=== PATIENT | female | born 1995 | race Caucasian/White ===

== ENCOUNTER 2018-03-30 10:41 | Emergency (ER) | payer BC ==
[~2018-03-30] VITALS: Ht 162.6 cm; Wt 113.4 kg
[~2018-03-30 10:41] MED LIST: ATIVAN1 M1 PO; AUGMENTIN875TAB PO; CIPROFLOXACN500 MG PO; DICLOFENAC SODI75 MG PO; LORTAB 10-325 M1 TAB PO; METRONIDAZOL500 MG PO; OB COMPLET2 PO; ULTRAM50 M1 PO; VENTOLIN HFA IN
[2018-03-30] MEDS ORDERED: DICLOFENAC50 MG PO (11:15)
[2018-03-30] MEDS ORDERED: AUGMENTIN500TAB PO (11:25)
[2018-03-30 13:16] LABS: URINE BILIRUBIN - DIPSTICK NEGATIVE (NEGATIVE); URINE BLOOD DIPSTICK TRACE-INTACT (NEGATIVE); URINE COLOR YELLOW; URINE GLUCOSE - DIPSTICK NEGATIVE (NEGATIVE); URINE KETONE NEGATIVE (NEGATIVE); URINE LEUK ESTERASE NEGATIVE (NEGATIVE); URINE NITRITE - DIPSTICK NEGATIVE (Negative); URINE PH 5.5 (4.5-8.0); URINE PROTEIN - DIPSTICK NEGATIVE (NEG-TRACE); URINE SPECIFIC GRAVITY >=1.030; URINE UROBILINOGEN - DIPSTICK 0.2 E.U./dL (0.2)
[2018-03-30 13:21] LABS: URINE CLARITY CLEAR
[2018-03-30 13:29] LABS: HEMOGLOBIN 13.4 g/dl (12.0-16.0); IMMATURE GRANULOCYTES 0.5 % (0.0-5.0); MEAN CELL VOLUME 87.1 fL CALC (80.0-100.0); MEAN CORPUSCULAR HGB 28.9 pG CALC (26.0-32.0); MEAN CORPUSCULAR HGB CONC 33.2 g/L CALC (32.0-36.0); NEUT# 4.21 thou/uL (2.00-7.15); RED BLOOD COUNT 4.64 mill/uL (4.20-5.60); RED CELL DISTRI WIDTH 13.2 % (11.5-15.5)
[2018-03-30 13:34] LABS: HEMATOCRIT 40.4 % (37.0-47.0)
[2018-03-30 13:38] LABS: ALBUMIN 4.5 g/dL (3.2-5.0); ALKALINE PHOSPHATASE 80 u/l (38-126); ANION GAP 18 (6-22 (CALC)); BILIRUBIN, TOTAL 0.5 mg/dL (0.0-1.4); BUN 9 mg/dL (7-17); BUN/CREATININE RATIO 16 (12-20 (CALC)); CARBON DIOXIDE 21 mmol/l (22-30); CHLORIDE 106 mmol/l (95-108); CREATININE 0.6 mg/dL (0.5-1.0); GFR > 60 ML/MIN (>=60 (CALC)); GFR FOR AFR.AMER. > 60 ML/MIN (>=60 (CALC)); LIPASE 86 u/l (23-300); POTASSIUM 4.3 mmol/l (3.5-5.1); SGOT/AST 32 u/l (14-36); SGPT/ALT 51 u/l (9-52); SODIUM 141 mmol/l (137-146); TOTAL PROTEIN 8.1 g/dL (6.3-8.2)
[2018-03-30] MEDS ORDERED: CIPROFLOXACN500 MG PO (14:40)
[2018-03-30] MEDS ORDERED: ONDANSETRON4 MG PO (14:40)
[2018-03-30] MEDS ORDERED: METRONIDAZOL500 MG PO (14:40)
[2018-03-30 15:00] VITALS: BP 125/61
== END 2018-03-30 15:11 | disposition home or self-care (01) | DRG 392 ==
LOC: ED 10:41
PROVIDERS: Family Medicine
DX: R10.32 Left lower quadrant pain (principal); N83.202 Unspecified ovarian cyst, left side
CPT/HCPCS: Q9967

== ENCOUNTER → 2018-08-31 | Outpatient (REF) | payer BC ==
[~2018-08-31] MED LIST changes: +AUGMENTIN500TAB PO; +BUPROPION150 M4 PO; +DICLOFEN POT50 MG PO; +DICLOFENAC50 MG PO; +NORCO1 TA2 PO; +ONDANSETRON4 MG PO; +SPIRONOLACTONE50 MG PO; +TAM75CAP PO
[2018-08-31 12:21] VITALS: BP 148/95
[2018-08-31 12:30] LABS: BARBITURATES NEGATIVE (NEGATIVE); COCAINE NEGATIVE (NEGATIVE); METHADONE NEGATIVE (NEGATIVE); OXCYCODONE NEGATIVE (NEGATIVE); TETRAHYDROCANNABIONOL NEGATIVE (NEGATIVE); TRICYLIC ANTIDEPRESSANTS NEGATIVE (NEGATIVE)
== END | disposition home or self-care (01) | DRG 950 ==
LOC: PAIN/MGT 12:00
PROVIDERS: ATTEND Anesthesiology Pain Medicine
DX: Z51.81 Encounter for therapeutic drug level monitoring (principal); Z79.891 Long term (current) use of opiate analgesic

== ENCOUNTER 2018-09-08 05:13 | Emergency (ER) | payer BC ==
[~2018-09-08] VITALS: Ht 162.6 cm; Wt 115.0 kg
[~2018-09-08 05:13] MED LIST changes: -TAM75CAP PO
[2018-09-08 05:52] LABS: URINE BILIRUBIN - DIPSTICK NEGATIVE (NEGATIVE); URINE BLOOD DIPSTICK SMALL (NEGATIVE); URINE COLOR YELLOW; URINE GLUCOSE - DIPSTICK NEGATIVE (NEGATIVE); URINE KETONE NEGATIVE (NEGATIVE); URINE LEUK ESTERASE NEGATIVE (NEGATIVE); URINE NITRITE - DIPSTICK NEGATIVE (Negative); URINE PROTEIN - DIPSTICK NEGATIVE (NEG-TRACE); URINE SPECIFIC GRAVITY 1.015; URINE UROBILINOGEN - DIPSTICK 0.2 E.U./dL (0.2)
[2018-09-08 05:58] LABS: HEMATOCRIT 37.6 % (37.0-47.0); HEMOGLOBIN 12.9 g/dl (12.0-16.0); IMMATURE GRANULOCYTES 0.3 % (0.0-5.0); MEAN CELL VOLUME 86.2 fL CALC (80.0-100.0); MEAN CORPUSCULAR HGB 29.6 pG CALC (26.0-32.0); MEAN CORPUSCULAR HGB CONC 34.3 g/L CALC (32.0-36.0); NEUT# 6.35 thou/uL (2.00-7.15); RED BLOOD COUNT 4.36 mill/uL (4.20-5.60); RED CELL DISTRI WIDTH 12.7 % (11.5-15.5)
[2018-09-08 06:05] LABS: URINE BACTERIA MODERATE hpf; URINE SQUAMOUS EPITHELIAL CELL FEW EPI/hpf (0-FEW); URINE WBC 0-2 WBC/hpf (0-5)
[2018-09-08 06:23] LABS: ALBUMIN 4.5 g/dL (3.2-5.0); ALKALINE PHOSPHATASE 82 u/l (38-126); ANION GAP 15 (6-22 (CALC)); BILIRUBIN, TOTAL 0.6 mg/dL (0.0-1.4); BUN 10 mg/dL (7-17); BUN/CREATININE RATIO 14 (12-20 (CALC)); CARBON DIOXIDE 22 mmol/l (22-30); CHLORIDE 103 mmol/l (95-108); CREATININE 0.8 mg/dL (0.5-1.0); GFR > 60 ML/MIN (>=60 (CALC)); GFR FOR AFR.AMER. > 60 ML/MIN (>=60 (CALC)); SGOT/AST 35 u/l (14-36); SODIUM 136 mmol/l (137-146); TOTAL PROTEIN 7.2 g/dL (6.3-8.2)
[2018-09-08] MEDS ORDERED: CIPROFLOXACN500 MG PO (06:30)
[2018-09-08] MEDS ORDERED: TAM75CAP PO (06:30)
[2018-09-08 07:00] VITALS: BP 118/67
== END 2018-09-08 06:58 | disposition home or self-care (01) | DRG 153 ==
LOC: ED 05:13
PROVIDERS: Emergency Medicine
DX: J11.1 Influenza due to unidentified influenza virus with other respiratory manifestations (principal); N39.0 Urinary tract infection, site not specified; R50.9 Fever, unspecified; M79.10 Myalgia, unspecified site

== ENCOUNTER 2019-03-30 06:38 | Day surgery (SDC) | payer BC ==
[~2019-03-30] VITALS: Ht 162.6 cm; Wt 111.1 kg
[~2019-03-30 06:38] MED LIST changes: +TAM75CAP PO
[2019-03-30] MEDS ORDERED: BUPROPION150 M4 PO (07:17)
[2019-03-30] MEDS ORDERED: DIPHEN/ATROP2.5 MG PO (07:18)
[2019-03-30] MEDS ORDERED: OXYBUTYNIN5 M1 PO (07:18)
[2019-03-30] MEDS ORDERED: NORCO1 TA2 PO ×2 (08:25→08:26)
[2019-03-30 08:44] VITALS: BP 131/82
== END 2019-03-30 09:20 | disposition home or self-care (01) | DRG 552 ==
LOC: ORM 06:38
PROVIDERS: ATTEND Anesthesiology Pain Medicine
PROC: 3E0T3BZ Introduction of Anesthetic Agent into Peripheral Nerves and Plexi, Percutaneous Approach (ICD-10-PCS; principal; 2019-03-30)
PROC: 3E0T33Z Introduction of Anti-inflammatory into Peripheral Nerves and Plexi, Percutaneous Approach (ICD-10-PCS; 2019-03-30)
PROC: 3E0T3BZ Introduction of Anesthetic Agent into Peripheral Nerves and Plexi, Percutaneous Approach (ICD-10-PCS; 2019-03-30)
PROC: 3E0T33Z Introduction of Anti-inflammatory into Peripheral Nerves and Plexi, Percutaneous Approach (ICD-10-PCS; 2019-03-30)
PROC: 3E0T3BZ Introduction of Anesthetic Agent into Peripheral Nerves and Plexi, Percutaneous Approach (ICD-10-PCS; 2019-03-30)
PROC: 3E0T33Z Introduction of Anti-inflammatory into Peripheral Nerves and Plexi, Percutaneous Approach (ICD-10-PCS; 2019-03-30)
DX: M54.5 Low back pain (principal); M12.9 Arthropathy, unspecified

== ENCOUNTER 2019-04-21 08:12 | Emergency (ER) | payer BC ==
[~2019-04-21] VITALS: Ht 162.6 cm; Wt 100.0 kg
[~2019-04-21 08:12] MED LIST changes: +DIPHEN/ATROP2.5 MG PO; +OXYBUTYNIN5 M1 PO
[2019-04-21] MEDS ORDERED: AMOXICILLIN/CL875 MG PO (08:38)
[2019-04-21 09:16] VITALS: BP 139/79
== END 2019-04-21 09:20 | disposition home or self-care (01) | DRG 153 ==
LOC: ED 08:12
DX: J32.0 Chronic maxillary sinusitis (principal); F17.210 Nicotine dependence, cigarettes, uncomplicated

== ENCOUNTER 2019-07-20 | Day surgery (SDC) | payer BC ==
[~2019-07-20] MED LIST changes: +AMOXICILLIN/CL875 MG PO
[2019-07-20] MEDS ORDERED: LYRICA25 MG PO (09:07)
[2019-07-20 09:11] LABS: HCG SERUM/URINE (NEG/POS) NEGATIVE (NEGATIVE)
[2019-07-20] MEDS ORDERED: NORCO1 TA2 PO (10:36)
[2019-08-23] MEDS ORDERED: NORCO1 TA2 PO (16:38)
[2019-09-20] MEDS ORDERED: NORCO1 TA2 PO (15:58)
[2019-10-18] MEDS ORDERED: NORCO1 TA2 PO (07:55)
[2019-11-22] MEDS ORDERED: NORCO1 TA2 PO (14:22)
[2019-11-22] MEDS ORDERED: DICLOFENAC75 MG PO (14:23)
[2019-12-20] MEDS ORDERED: DICLOFENAC75 MG PO (15:13)
[2019-12-20] MEDS ORDERED: NORCO1 TA2 PO (15:14)
[2020-01-17] MEDS ORDERED: NORCO1 TA2 PO (14:55)
[2020-02-14] MEDS ORDERED: DICLOFENAC75 MG PO (14:25)
[2020-02-14] MEDS ORDERED: NORCO1 TA2 PO (14:25)
[2020-03-20] MEDS ORDERED: NORCO1 TA2 PO (09:22)
[2020-04-17] MEDS ORDERED: NORCO1 TA2 PO (14:18)
== END 2019-07-20 10:45 | disposition home or self-care (01) | DRG 552 ==
PROVIDERS: Anesthesiology Pain Medicine
DX: M54.5 Low back pain (principal); M12.9 Arthropathy, unspecified

== ENCOUNTER 2019-09-04 | Emergency (ER) | payer BC ==
[~2019-09-04] MED LIST changes: +LYRICA25 MG PO
[2019-09-04] MEDS ORDERED: AMOXICILLIN500 MG PO (21:04)
[2019-09-05] MEDS ORDERED: ZOFRAN4 MG/TAB PO (13:33)
[2019-09-20] MEDS ORDERED: NORCO1 TA2 PO (15:58)
[2019-10-18] MEDS ORDERED: NORCO1 TA2 PO (07:55)
[2019-11-22] MEDS ORDERED: NORCO1 TA2 PO (14:22)
[2019-11-22] MEDS ORDERED: DICLOFENAC75 MG PO (14:23)
[2019-12-20] MEDS ORDERED: DICLOFENAC75 MG PO (15:13)
[2019-12-20] MEDS ORDERED: NORCO1 TA2 PO (15:14)
[2020-01-17] MEDS ORDERED: NORCO1 TA2 PO (14:55)
[2020-02-14] MEDS ORDERED: NORCO1 TA2 PO (14:25)
[2020-02-14] MEDS ORDERED: DICLOFENAC75 MG PO (14:25)
[2020-03-20] MEDS ORDERED: NORCO1 TA2 PO (09:22)
[2020-04-17] MEDS ORDERED: NORCO1 TA2 PO (14:18)
== END 2019-09-04 21:10 | disposition home or self-care (01) | DRG 153 ==
DX: J02.0 Streptococcal pharyngitis (principal)

== ENCOUNTER 2019-09-05 | Emergency (ER) | payer BC ==
[~2019-09-05] MED LIST changes: +AMOXICILLIN500 MG PO
[2019-09-05] MEDS ORDERED: ZOFRAN4 MG/TAB PO (13:33)
[2019-09-20] MEDS ORDERED: NORCO1 TA2 PO (15:58)
[2019-10-18] MEDS ORDERED: NORCO1 TA2 PO (07:55)
[2019-11-22] MEDS ORDERED: NORCO1 TA2 PO (14:22)
[2019-11-22] MEDS ORDERED: DICLOFENAC75 MG PO (14:23)
[2019-12-20] MEDS ORDERED: DICLOFENAC75 MG PO (15:13)
[2019-12-20] MEDS ORDERED: NORCO1 TA2 PO (15:14)
[2020-01-17] MEDS ORDERED: NORCO1 TA2 PO (14:55)
[2020-02-14] MEDS ORDERED: DICLOFENAC75 MG PO (14:25)
[2020-02-14] MEDS ORDERED: NORCO1 TA2 PO (14:25)
[2020-03-20] MEDS ORDERED: NORCO1 TA2 PO (09:22)
[2020-04-17] MEDS ORDERED: NORCO1 TA2 PO (14:18)
== END 2019-09-05 13:55 | disposition home or self-care (01) | DRG 153 ==
DX: J02.0 Streptococcal pharyngitis (principal)
CPT/HCPCS: J0561

== ENCOUNTER 2020-05-02 06:07 | Day surgery (SDC) | payer BC ==
[~2020-05-02] VITALS: Ht 162.6 cm; Wt 111.1 kg
[~2020-05-02 06:07] MED LIST changes: +DICLOFENAC75 MG PO; +ZOFRAN4 MG/TAB PO
[2020-05-02 08:05] VITALS: BP 113/77
[2020-05-02] MEDS ORDERED: NORCO1 TA2 PO (08:08)
== END 2020-05-02 08:27 | disposition home or self-care (01) | DRG 552 ==
LOC: ORM 06:07
PROVIDERS: ATTEND Anesthesiology Pain Medicine
DX: M54.5 Low back pain (principal); M12.9 Arthropathy, unspecified; Z01.84 Encounter for antibody response examination

== ENCOUNTER 2020-12-12 17:05 | Emergency (ER) | payer MEDICAID ==
[~2020-12-12] VITALS: Ht 162.6 cm; Wt 114.0 kg
[~2020-12-12 17:05] MED LIST changes: +LORTAB 7.57.5 MG PO
[2020-12-12 17:40] LABS: URINE BILIRUBIN - DIPSTICK NEGATIVE (NEGATIVE); URINE BLOOD DIPSTICK SMALL (NEGATIVE); URINE COLOR YELLOW; URINE GLUCOSE - DIPSTICK NEGATIVE (NEGATIVE); URINE KETONE NEGATIVE (NEGATIVE); URINE LEUK ESTERASE NEGATIVE (NEGATIVE); URINE PH 5.5 (4.5-8.0); URINE PROTEIN - DIPSTICK NEGATIVE (NEG-TRACE); URINE SPECIFIC GRAVITY >=1.030; URINE UROBILINOGEN - DIPSTICK 0.2 E.U./dL (0.2)
[2020-12-12 17:44] LABS: URINE NITRITE - DIPSTICK NEGATIVE (Negative)
[2020-12-12 17:52] LABS: URINE BACTERIA FEW hpf; URINE SQUAMOUS EPITHELIAL CELL FEW EPI/hpf (0-FEW); URINE WBC 0-2 WBC/hpf (0-5)
[2020-12-12 18:16] LABS: HEMATOCRIT 38.7 % (37.0-47.0); HEMOGLOBIN 12.6 g/dl (12.0-16.0); IMMATURE GRANULOCYTES 0.3 % (0.0-5.0); MEAN CELL VOLUME 88.4 fL CALC (80.0-100.0); MEAN CORPUSCULAR HGB 28.8 pG CALC (26.0-32.0); MEAN CORPUSCULAR HGB CONC 32.6 g/dL CAL (32.0-36.0); NEUT# 5.2 thou/uL (2.00-7.15); RED BLOOD COUNT 4.38 mill/uL (4.20-5.60); RED CELL DISTRI WIDTH 12.6 % (11.5-15.5)
[2020-12-12 18:28] LABS: ALBUMIN 4.1 g/dL (3.2-5.0); ALKALINE PHOSPHATASE 59 u/l (38-126); ANION GAP 11 (6-22 (CALC)); BILIRUBIN, TOTAL 0.3 mg/dL (0.0-1.4); BUN 14 mg/dL (7-17); BUN/CREATININE RATIO 19 (12-20 (CALC)); CARBON DIOXIDE 25 mmol/l (22-30); CHLORIDE 104 mmol/l (95-108); CREATININE 0.7 mg/dL (0.5-1.0); GFR > 60 ML/MIN (>=60 (CALC)); GFR FOR AFR.AMER. > 60 ML/MIN (>=60 (CALC)); LIPASE 81 u/l (23-300); POTASSIUM 4.3 mmol/l (3.5-5.1); SGOT/AST 23 u/l (14-36); SODIUM 135 mmol/l (137-146); TOTAL PROTEIN 7.4 g/dL (6.3-8.2)
[2020-12-12 20:35] VITALS: BP 129/64
[2021-01-15] MEDS ORDERED: LORTAB 7.57.5 MG PO ×2 (12:34→12:35)
[2021-01-15] MEDS ORDERED: TRAZODONE100 MG PO (12:37)
[2021-02-05] MEDS ORDERED: LORTAB 7.57.5 MG PO (11:13)
== END 2020-12-12 20:35 | disposition home or self-care (01) ==
LOC: ED 17:05
PROVIDERS: Family Medicine
DX: R10.31 Right lower quadrant pain (principal); R10.33 Periumbilical pain; K59.00 Constipation, unspecified; R31.29 Other microscopic hematuria; M54.5 Low back pain; G89.29 Other chronic pain
CPT/HCPCS: Q9967

== ENCOUNTER 2021-03-31 12:23 | Emergency (ER) | payer MEDICAID ==
[~2021-03-31] VITALS: Ht 162.6 cm; Wt 108.0 kg
[~2021-03-31 12:23] MED LIST changes: +AMBIEN10 MG PO; +TRAZODONE100 MG PO
[2021-03-31 13:28] LABS: URINE BILIRUBIN - DIPSTICK NEGATIVE (NEGATIVE); URINE BLOOD DIPSTICK TRACE-INTACT (NEGATIVE); URINE COLOR YELLOW; URINE GLUCOSE - DIPSTICK NEGATIVE (NEGATIVE); URINE KETONE TRACE mg/dL (NEGATIVE); URINE LEUK ESTERASE NEGATIVE (NEGATIVE); URINE PROTEIN - DIPSTICK NEGATIVE (NEG-TRACE); URINE SPECIFIC GRAVITY >=1.030; URINE UROBILINOGEN - DIPSTICK 0.2 E.U./dL (0.2)
[2021-03-31 13:32] LABS: URINE NITRITE - DIPSTICK NEGATIVE (Negative)
[2021-03-31] MEDS ORDERED: KEFLEX500 MG PO (14:06)
[2021-03-31 14:26] VITALS: BP 142/77
== END 2021-03-31 14:31 | disposition home or self-care (01) ==
LOC: ED 12:23
DX: N30.90 Cystitis, unspecified without hematuria (principal)

== ENCOUNTER 2021-10-23 08:12 | Day surgery (SDC) | payer MEDICAID ==
[~2021-10-23] VITALS: Ht 162.6 cm; Wt 111.1 kg
[~2021-10-23 08:12] MED LIST changes: +KEFLEX500 MG PO
[2021-10-23] MEDS ORDERED: TRAZODONE XX (09:27)
[2021-10-23 11:39] VITALS: BP 135/77
== END 2021-10-23 11:32 | disposition home or self-care (01) ==
LOC: ORM 08:12
PROVIDERS: ATTEND Physical Medicine & Rehabilitation
DX: M47.812 Spondylosis without myelopathy or radiculopathy, cervical region (principal); G89.4 Chronic pain syndrome; Z79.891 Long term (current) use of opiate analgesic

== ENCOUNTER 2021-12-17 17:11 | Emergency (ER) | payer MEDICAID ==
[~2021-12-17] VITALS: Ht 162.6 cm; Wt 116.0 kg
[~2021-12-17 17:11] MED LIST changes: +TRAZODONE XX
[2021-12-17 17:21] VITALS: BP 135/93
[2021-12-17 17:31] VITALS: BP 131/89
[2021-12-17 18:15] LABS: HEMATOCRIT 38.4 % (37.0-47.0); HEMOGLOBIN 12.5 g/dl (12.0-16.0); IMMATURE GRANULOCYTES 0.2 % (0.0-5.0); MEAN CELL VOLUME 89.9 fL CALC (80.0-100.0); MEAN CORPUSCULAR HGB 29.3 pG CALC (26.0-32.0); MEAN CORPUSCULAR HGB CONC 32.6 g/dL CAL (32.0-36.0); NEUT# 8.45 thou/uL (2.00-7.15); RED BLOOD COUNT 4.27 mill/uL (4.20-5.60); RED CELL DISTRI WIDTH 12.5 % (11.5-15.5)
[2021-12-17 18:25] LABS: ALBUMIN 4.3 g/dL (3.2-5.0); ALKALINE PHOSPHATASE 81 u/l (38-126); ANION GAP 13 (6-22 (CALC)); BUN 9 mg/dL (7-17); BUN/CREATININE RATIO 16 (12-20 (CALC)); CARBON DIOXIDE 22 mmol/l (22-30); CHLORIDE 105 mmol/l (95-108); CREATININE 0.6 mg/dL (0.5-1.0); GFR FOR AFR.AMER. > 60 ML/MIN (>=60 (CALC)); GFR OTHER RACES > 60 ML/MIN (>=60 (CALC)); POTASSIUM 4.2 mmol/l (3.5-5.1); SGOT/AST 38 u/l (14-36); SODIUM 137 mmol/l (137-146)
[2021-12-17 18:27] LABS: BILIRUBIN, TOTAL 0.7 mg/dL (0.0-1.4)
[2021-12-17 20:06] VITALS: BP 131/89
[2021-12-17] MEDS ORDERED: AMOX/K CLAV875 M1 PO (20:07)
== END 2021-12-17 20:23 | disposition home or self-care (01) ==
LOC: ED 17:11
PROVIDERS: Family Medicine
DX: J03.90 Acute tonsillitis, unspecified (principal); Z20.828 Contact with and (suspected) exposure to other viral communicable diseases
CPT/HCPCS: Q9967

== ENCOUNTER 2022-01-01 09:03 | Day surgery (SDC) | payer MEDICAID ==
[~2022-01-01] VITALS: Ht 162.6 cm; Wt 109.3 kg
[~2022-01-01 09:03] MED LIST changes: +AMOX/K CLAV875 M1 PO
[2022-01-01] MEDS ORDERED: GABAPENTIN100 MG PO (09:25)
[2022-01-01 11:40] VITALS: BP 137/88
== END 2022-01-01 11:00 | disposition home or self-care (01) ==
LOC: ORM 09:03
PROVIDERS: ATTEND Physical Medicine & Rehabilitation
DX: M47.812 Spondylosis without myelopathy or radiculopathy, cervical region (principal); G89.4 Chronic pain syndrome; Z79.891 Long term (current) use of opiate analgesic

== ENCOUNTER 2022-01-29 06:39 | Day surgery (SDC) | payer MEDICAID ==
[~2022-01-29] VITALS: Ht 162.6 cm; Wt 111.1 kg
[~2022-01-29 06:39] MED LIST changes: +GABAPENTIN100 MG PO
[2022-01-29 11:05] VITALS: BP 121/81
== END 2022-01-29 10:45 | disposition home or self-care (01) ==
LOC: ORM 06:39
PROVIDERS: ATTEND Physical Medicine & Rehabilitation
DX: M47.812 Spondylosis without myelopathy or radiculopathy, cervical region (principal)
CPT/HCPCS: J1100

== ENCOUNTER 2022-12-03 06:56 | Day surgery (SDC) | payer MEDICAID ==
[~2022-12-03] VITALS: Ht 162.6 cm; Wt 120.2 kg
[2022-12-03 07:12] LABS: HCG SERUM/URINE (NEG/POS) NEGATIVE (NEGATIVE)
[2022-12-03] MEDS ORDERED: TOPAMAX25 MG PO (07:38)
[2022-12-03] MEDS ORDERED: ABILIFY10 MG PO (07:38)
[2022-12-03 10:10] VITALS: BP 131/90
== END 2022-12-03 08:50 | disposition home or self-care (01) ==
LOC: ORM 06:56
PROVIDERS: ATTEND Physical Medicine & Rehabilitation Pain Medicine
DX: G89.4 Chronic pain syndrome (principal); Z79.891 Long term (current) use of opiate analgesic; M47.812 Spondylosis without myelopathy or radiculopathy, cervical region; G89.21 Chronic pain due to trauma

== ENCOUNTER 2022-12-09 17:13 | Emergency (ER) | payer OTHER, MEDICAID ==
[~2022-12-09] VITALS: Ht 162.6 cm; Wt 122.0 kg
[2022-12-09] VITALS (12 sets, daily range): BP systolic 117–146; BP diastolic 60–93
[~2022-12-09 17:13] MED LIST changes: +ABILIFY10 MG PO; +TOPAMAX25 MG PO
[2022-12-09 18:15] LABS: BASO% 0.4 % (0-3); HEMATOCRIT 40.6 % (37.0-47.0); HEMOGLOBIN 13.3 g/dl (12.0-16.0); IMMATURE GRANULOCYTES 0.3 % (0.0-5.0); LYMPH% 23.4 % (15-41); MEAN CELL VOLUME 87.7 fL CALC (80.0-100.0); MEAN CORPUSCULAR HGB 28.7 pG CALC (26.0-32.0); MEAN CORPUSCULAR HGB CONC 32.8 g/dL CAL (32.0-36.0); MONO% 8.1 % (2-13); NEUT# 7.54 thou/uL (2.00-7.15); NEUT% 66.8 % (42-76); RED BLOOD COUNT 4.63 mill/uL (4.20-5.60); RED CELL DISTRI WIDTH 13.1 % (11.5-15.5)
[2022-12-09 18:30] LABS: ALBUMIN 4.7 g/dL (3.2-5.0); ALKALINE PHOSPHATASE 77 u/l (38-126); BUN 15 mg/dL (7-17); BUN/CREATININE RATIO 17 (12-20 (CALC)); CHLORIDE 108 mmol/l (95-108); CREATININE 0.9 mg/dL (0.5-1.0); GFR FOR AFR.AMER. > 60 ML/MIN (>=60 (CALC)); GFR OTHER RACES > 60 ML/MIN (>=60 (CALC)); POTASSIUM 3.7 mmol/l (3.5-5.1); SGOT/AST 33 u/l (14-36); SODIUM 142 mmol/l (137-146); TOTAL PROTEIN 7.9 g/dL (6.3-8.2)
[2022-12-09 18:31] LABS: ANION GAP 19 (6-22 (CALC)); BILIRUBIN, TOTAL 0.4 mg/dL (0.02-1.3); CARBON DIOXIDE 19 mmol/l (22-30)
[2022-12-09] MEDS ORDERED: TIZANIDINE2 MG PO (20:46)
== END 2022-12-09 21:09 | disposition home or self-care (01) | DRG 93 ==
LOC: ED 17:13
PROVIDERS: Family Medicine
DX: R20.2 Paresthesia of skin (principal); S16.1XXA Strain of muscle, fascia and tendon at neck level, initial encounter; V49.40XA Driver injured in collision with unspecified motor vehicles in traffic accident, initial encounter; G89.29 Other chronic pain; E66.01 Morbid (severe) obesity due to excess calories